=== PATIENT | female | born 1995 | race Caucasian/White ===

== ENCOUNTER → 2020-03-05 | Outpatient (CLI) | payer BC ==
[~2020-03-05] MED LIST: ACYC-114 PO; BUTA-177 PO; DESO1TAB89 PO; MELO7.5T31 PO; SPIR100T4 PO; SULF500T36 PO
[2020-03-05 16:37] LABS: ALANINE AMINOTRANSFERASE 20 U/L (12-78); ALBUMIN 3.9 g/dL (3.4-5.0); ANION GAP 4 mmol/L (5-15); CALCIUM 9.1 mg/dL (8.5-10.1); CHLORIDE 106 mmol/L (98-107); CREATININE 0.99 mg/dL (0.55-1.02)
[2020-03-05 16:40] LABS: ALKALINE PHOSPHATASE 59 U/L (45-117); BILIRUBIN,TOTAL 0.3 mg/dL (0.2-1.0); TOTAL PROTEIN 7.2 g/dL (6.4-8.2)
== END | disposition home or self-care (01) ==
LOC: STAR 15:50
PROVIDERS: ATTEND Podiatrist Foot & Ankle Surgery
DX: Z01.818 Encounter for other preprocedural examination (principal)
CPT/HCPCS: 36415; 80053

== ENCOUNTER 2020-03-09 08:23 | Day surgery (SDC) | payer BC ==
[~2020-03-09] VITALS: Ht 177.8 cm; Wt 70.0 kg
[~2020-03-09 08:23] MED LIST changes: +BUPIVACAINE/PF 0.5% ONE; +EPINEPHRINE 1 MG/ML, 1ML ONE
[2020-03-09] MEDS ORDERED: LACTATED RINGERS 1,000 ML IV SCH (09:01)
[2020-03-09] MEDS ORDERED: CHLORHEXIDINE 15 ML UDC ONE (09:06)
[2020-03-09] MEDS ORDERED: LIDOCAINE-MPF 1%, 2ML ONE (09:09)
[2020-03-09 09:26] LABS: HCG UR SG 1.021 (1.003-1.030)
[2020-03-09] MEDS ORDERED: LIDOCAINE-MPF 1%, 2ML INFIL ONE (09:30)
[2020-03-09] MEDS ORDERED: CHLORHEXIDINE 15 ML UDC MM ONE (09:30)
[2020-03-09] MEDS ORDERED: FENTANYL PF 100 MCG/2ML ONE ×2 (09:32→11:09)
[2020-03-09] MEDS ORDERED: MIDAZOLAM 1 MG/ML, 2ML ONE (09:32)
[2020-03-09] MEDS ORDERED: PROPOFOL 10 MG/ML, 20ML ONE (10:10)
[2020-03-09] MEDS ORDERED: ONDANSETRON 2MG/ML, 2ML ONE (10:10)
[2020-03-09] MEDS ORDERED: ROCURONIUM 10 MG/ML,10ML ONE (10:10)
[2020-03-09] MEDS ORDERED: DEXAMETHASONE 4 MG/ML, 1ML ONE (10:10)
[2020-03-09] MEDS ORDERED: CEFAZOLIN 1,000 MG ONE (10:10)
[2020-03-09] MEDS ORDERED: SUCCINYLCHOLINE 20 MG/ML, 10ML ONE (10:10)
[2020-03-09] MEDS ORDERED: DIAZEPAM 5 MG/ML, 2ML IV PRN ×2 (10:30)
[2020-03-09] MEDS ORDERED: KETOROLAC 30 MG/1 ML IV PRN (10:30)
[2020-03-09] MEDS ORDERED: METOCLOPRAMIDE 5 MG/ML, 2ML IV PRN (10:30)
[2020-03-09] MEDS ORDERED: ALBUTEROL SULFATE 2.5 MG/3 ML NPPB PRN (10:30)
[2020-03-09] MEDS ORDERED: LABETALOL 5MG/ML, 20ML IV PRN (10:30)
[2020-03-09] MEDS ORDERED: ONDANSETRON 2MG/ML, 2ML IVPush PRN (10:30)
[2020-03-09] MEDS ORDERED: MEPERIDINE/PF 25MG/0.5ML IVPush PRN (10:30)
[2020-03-09] MEDS ORDERED: HYDROmorphone 1 MG/ML, 1ML INJ IV PRN (10:30)
[2020-03-09] MEDS ORDERED: OXYcodone 5 MG/5 ML ORAL.SOL UDC PO PRN (10:30)
[2020-03-09] MEDS ORDERED: hydrALAzine 20 MG/ML, 1ML IV PRN (10:30)
[2020-03-09] MEDS ORDERED: PROMETHAZINE 25 MG/ML, 1ML IV PRN (10:30)
[2020-03-09] MEDS ORDERED: OXYcodone 5 MG/5 ML ORAL.SOL UDC ONE (11:09)
[2020-03-09] MEDS: FENTANYL PF 100 MCG/2ML IV PRN ×2 (11:10→11:29)
== END 2020-03-09 14:30 | disposition home or self-care (01) ==
LOC: OUT 08:23
PROVIDERS: ATTEND Podiatrist Foot & Ankle Surgery
DX: M20.42 Other hammer toe(s) (acquired), left foot (principal); Z11.59 Encounter for screening for other viral diseases; G57.62 Lesion of plantar nerve, left lower limb; Z79.899 Other long term (current) drug therapy; Z88.8 Allergy status to other drugs, medicaments and biological substances
CPT/HCPCS: 28285; 36415; 64445; 64447; 81025; 87635; C1713; J0330; J0690; J1100; J1170; J1885; J2250; J2405; J2704; J3010; J0171